=== PATIENT | female | born 1980 | race Caucasian/White ===

== ENCOUNTER 2017-01-22 20:58 | Emergency (ER) | payer BC ==
[~2017-01-22] VITALS: Ht 170.1 cm; Wt 63.5 kg
[~2017-01-22 20:58] MED LIST: ADDERALL20 MG PO; ALBUTEROL0.09 MG/A2 INH; AUGMENTIN 875 M1 TAB PO; AUGMENTIN 875875 MG PO; BACTRIM DS 8001 TA1 PO; BIRTH CONTROL1 EAC1 PO; CLARITIN10 MG PO; DICLOFENAC SOD75 MG PO; IBUPROFEN 30 M800 MG PO; KLONOPIN1 MG PO; MOTRIN800 MG PO; MUCINEX1200 MG PO; NKHM; PHENERGAN W/DM120 ML PO; PREDNISONE10 MG PO; PRISTIQ50 MG PO; PROAIR HFA0.09 MG/AC INH; PROVENTIL0.09 MG/AC IH; SPRINTEC 35 MCG1 TA1 PO; TRAMADOL HCL50 MG PO; TRIMOX500 MG PO; VICODIN 5/500 505 MG PO; VITAMIN B COMPL1 CAP PO; ZITHROMAX Z PA250 MG PO; ZOFRAN4 MG PO
[2017-01-22 21:19] VITALS: BP 126/79
[2017-01-22] MEDS ORDERED: PROZAC20 MG PO (21:20)
[2017-01-22] MEDS ORDERED: ABILIFY5 MG PO (21:21)
[2017-01-22] MEDS ORDERED: PROZAC40 M1 PO (21:21)
[2017-01-22] MEDS ORDERED: AMOXICILLIN500 M2 PO (21:42)
[2017-01-22] MEDS ORDERED: NAPROSYN500 MG PO (21:42)
== END 2017-01-22 21:52 | disposition home or self-care (01) ==
LOC: ED 20:58
DX: K08.89 Other specified disorders of teeth and supporting structures (principal); F17.200 Nicotine dependence, unspecified, uncomplicated; Z79.899 Other long term (current) drug therapy

== ENCOUNTER 2019-02-25 23:17 | Emergency (ER) | payer BC ==
[~2019-02-25] VITALS: Ht 170.1 cm; Wt 88.5 kg
[~2019-02-25 23:17] MED LIST changes: +ABILIFY5 MG PO; +AMOXICILLIN500 M2 PO; +NAPROSYN500 MG PO; +PROZAC20 MG PO; +PROZAC40 M1 PO
[2019-02-25 23:18] VITALS: BP 139/87
[2019-02-26 00:04] LABS: BILIRUBIN NEGATIVE (NEGATIVE); BLOOD 1+ (NEGATIVE); CLARITY SL CLOUDY (CLEAR); COLOR YELLOW (YELLOW); GLUCOSE NEGATIVE (NEGATIVE); KETONE NEGATIVE (NEGATIVE); LEUKO ESTERASE 2+ (NEGATIVE); NITRITE NEGATIVE (NEGATIVE); PH 6.5 (5.0-9.0); SPECIFIC GRAVITY <= 1.005 (1.005-1.030); UROBILINOGEN 0.2 E.U./dl (0.2-1.0)
[2019-02-26 00:25] LABS: BASO % 0.2 % (0.0-1.0); EOS # 0.3 10*3/uL (0.0-0.4); EOS % 2.1 % (1.0-4.0); HEMATOCRIT 45.3 % (37.0-47.0); HEMOGLOBIN 15.3 g/dl (12.0-16.0); LYMPH # 3.5 10*3/uL (1.3-4.4); LYMPH % 28.5 % (27.0-41.0); MEAN CELL VOLUME 91.9 fl (81.0-99.0); MEAN CORPUSCULAR HGB CONC 33.8 g/dl (33.0-37.0); MEAN PLATELET VOLUME 9.8 fl (9.6-12.3); MONO # 0.7 10*3/uL (0.1-1.0); MONO % 5.6 % (3.0-9.0); NEUT # 7.8 10*3/uL (2.3-7.9); NEUT % 63.2 % (47.0-73.0); PLATELET COUNT AUTOMATED 275 10*3/uL (130-400); RED BLOOD COUNT 4.93 10*6/uL (4.10-5.10); RED CELL DISTRI WIDTH 12.9 % (0-14.5); WHITE BLOOD COUNT 12.3 10*3/uL (4.8-10.8)
[2019-02-26 00:28] LABS: WBC 41-50 wbc/hpf (0-5)
[2019-02-26 00:39] LABS: ALBUMIN 3.4 gm/dl (3.1-4.5); ALKALINE PHOSPHATASE 111 U/L (45-117); BUN 4 mg/dl (7-24); CHLORIDE 105 mmol/L (98-107); CREATININE 0.72 mg/dL (0.55-1.02); POTASSIUM 3.4 mmol/L (3.5-5.1); SGOT/AST 12 IU/L (3-35); SGPT/ALT 18 U/L (12-78); SODIUM 139 mmol/L (136-145); TOTAL PROTEIN 6.7 gm/dL (6.4-8.2)
[2019-02-26] MEDS ORDERED: CYCLOBENZAPRINE10 MG PO (01:17)
[2019-02-26] MEDS ORDERED: IBU800 MG PO (01:17)
[2019-02-26] MEDS ORDERED: MACROBID100 M1 PO (01:17)
== END 2019-02-26 01:48 | disposition home or self-care (01) ==
LOC: ED 23:17
PROVIDERS: Nurse Practitioner Family
DX: S39.012A Strain of muscle, fascia and tendon of lower back, initial encounter (principal); N39.0 Urinary tract infection, site not specified; Z79.899 Other long term (current) drug therapy; W01.0XXA Fall on same level from slipping, tripping and stumbling without subsequent striking against object, initial encounter; Y93.89 Activity, other specified; Y92.89 Other specified places as the place of occurrence of the external cause; Y99.8 Other external cause status

== ENCOUNTER 2019-08-09 16:37 | Emergency (ER) | payer BC ==
[~2019-08-09] VITALS: Ht 170.1 cm; Wt 77.1 kg
[~2019-08-09 16:37] MED LIST changes: +CYCLOBENZAPRINE10 MG PO; +IBU800 MG PO; +MACROBID100 M1 PO
[2019-08-09 16:39] VITALS: BP 130/80
[2019-08-09] MEDS ORDERED: PENICILLIN VK500 MG PO (18:24)
[2019-08-09] MEDS ORDERED: IBU800 MG PO (18:24)
== END 2019-08-09 21:39 | disposition home or self-care (01) ==
LOC: ED 16:37
DX: S02.5XXA Fracture of tooth (traumatic), initial encounter for closed fracture (principal); K04.7 Periapical abscess without sinus; F17.200 Nicotine dependence, unspecified, uncomplicated; Z79.2 Long term (current) use of antibiotics; Z79.899 Other long term (current) drug therapy; X58.XXXA Exposure to other specified factors, initial encounter; Y93.89 Activity, other specified; Y92.89 Other specified places as the place of occurrence of the external cause; Y99.8 Other external cause status

== ENCOUNTER 2019-11-15 20:31 | Inpatient (IN) | payer BC ==
[~2019-11-15] VITALS: Ht 170.2 cm; Wt 78.0 kg
[~2019-11-15 20:31] MED LIST changes: +ADDERALL XR 3030 MG PO; -ADDERALL20 MG PO; +PENICILLIN VK500 MG PO
[2019-11-15 20:39] VITALS: BP 104/71
--- NOTE | 2019-11-15 21:45 | NUR ---
PATIENT STATES THAT PAIN MEDICATION HAS NOT HELPED. IGNACIA BERNAL NOTIFIED.
--- NOTE | 2019-11-15 22:22 | NUR ---
PT STATES THAT PAIN MEDICATION HAS BEEN EFFECTIVE.
[2019-11-15 22:44] LABS: BILIRUBIN 1+ (NEGATIVE); BLOOD NEGATIVE (NEGATIVE); CLARITY CLEAR (CLEAR); COLOR YELLOW (YELLOW); GLUCOSE NEGATIVE (NEGATIVE); KETONE TRACE (NEGATIVE); LEUKO ESTERASE 1+ (NEGATIVE); NITRITE NEGATIVE (NEGATIVE); UROBILINOGEN 0.2 E.U./dl (0.2-1.0)
[2019-11-15 22:53] LABS: BACTERIA 2+; EPITHELIAL CELLS 15-20; WBC 16-20 wbc/hpf (0-5)
[2019-11-15 22:57] LABS: BASO % 0.3 % (0.0-1.0); EOS % 0.3 % (1.0-4.0); HEMATOCRIT 37.8 % (37.0-47.0); HEMOGLOBIN 13.2 g/dl (12.0-16.0); LYMPH # 1.5 10*3/uL (1.3-4.4); LYMPH % 9.5 % (27.0-41.0); MEAN CELL VOLUME 90.2 fl (81.0-99.0); MEAN CORPUSCULAR HGB 31.5 pg (27.0-31.0); MEAN CORPUSCULAR HGB CONC 34.9 g/dl (33.0-37.0); MEAN PLATELET VOLUME 10.4 fl (9.6-12.3); MONO # 0.8 10*3/uL (0.1-1.0); MONO % 4.9 % (3.0-9.0); NEUT # 13.2 10*3/uL (2.3-7.9); NEUT % 84.4 % (47.0-73.0); PLATELET COUNT AUTOMATED 235 10*3/uL (130-400); RED BLOOD COUNT 4.19 10*6/uL (4.10-5.10); RED CELL DISTRI WIDTH 12.9 % (0-14.5); WHITE BLOOD COUNT 15.6 10*3/uL (4.8-10.8)
[2019-11-15 23:19] LABS: ALBUMIN 3.3 gm/dl (3.1-4.5); ALKALINE PHOSPHATASE 88 U/L (45-117); BUN 4 mg/dl (7-24); CHLORIDE 106 mmol/L (98-107); CREATININE 0.64 mg/dL (0.55-1.02); POTASSIUM 3.3 mmol/L (3.5-5.1); SGOT/AST 19 IU/L (3-35); SGPT/ALT 31 U/L (12-78); SODIUM 137 mmol/L (136-145); TOTAL PROTEIN 6.8 gm/dL (6.4-8.2)
[2019-11-16 01:55] VITALS: BP 112/68
[2019-11-16 02:15] LABS: ACT PARTIAL THROMBO TIME 27.6 SECONDS (20.0-32.1); INTERNATIONAL NORM RATIO 0.9 (2.0-3.5)
[2019-11-16 02:21] LABS: TROPONIN I < 0.015 ng/ml (<0.045)
[2019-11-16 02:30] VITALS: BP 96/56
--- NOTE | 2019-11-16 02:30 | NUR ---
A 39, admitted to , under the services of CHARLENE Pickett DO with a diagnosis of PULMONARY EMBOLISM. Chief complaint is LEFT SIDED PAIN. Patient arrived via ambulatory from ER. Monitor applied. Initial assessment completed. Vital signs taken and recorded. CHARLENE PICKETT DO notified of admission to the unit. Orders received. See assessment for past medical history, medications and allergies. Patient and/or family oriented to unit. visitation policy reviewed. Clothing/patient valuable form completed. BREANNA MCDUFFIE
--- NOTE | 2019-11-16 02:55 | NUR ---
PATIENT MEDICATED WITH NORCO FOR COMPLAINTS OF LEFT SIDED PAIN. WILL MONITOR FOR EFFECTIVENESS.
[2019-11-16] MEDS ORDERED: XANAX1 MG PO (03:09)
--- NOTE | 2019-11-16 03:10 | NUR ---
DR. MAYER NOTIFIED THAT PATIENT'S HOME MED REQ IS UP TO DATE ACCORDING TO WHAT SHE CLAIMS TO TAKE.
[2019-11-16 06:15] LABS: BUN 9 mg/dl (7-24); CHLORIDE 109 mmol/L (98-107); CHOLESTEROL 139 mg/dL (<200); CREATININE 0.56 mg/dL (0.55-1.02); PHOSPHOROUS 3.6 mg/dL (2.5-4.9); SGOT/AST 12 IU/L (3-35); SGPT/ALT 26 U/L (12-78); SODIUM 137 mmol/L (136-145); TRIGLYCERIDES 75 mg/dl (<150); VLDL CHOLESTEROL 15 mg/dL (6-40)
[2019-11-16 06:18] LABS: BASO % 0.3 % (0.0-1.0); EOS # 0.1 10*3/uL (0.0-0.4); EOS % 0.6 % (1.0-4.0); HEMATOCRIT 36.2 % (37.0-47.0); HEMOGLOBIN 12.2 g/dl (12.0-16.0); LYMPH % 24.4 % (27.0-41.0); MEAN CELL VOLUME 89.4 fl (81.0-99.0); MEAN CORPUSCULAR HGB 30.1 pg (27.0-31.0); MEAN CORPUSCULAR HGB CONC 33.7 g/dl (33.0-37.0); MEAN PLATELET VOLUME 10.5 fl (9.6-12.3); MONO % 7.9 % (3.0-9.0); NEUT # 8.3 10*3/uL (2.3-7.9); NEUT % 66.3 % (47.0-73.0); PLATELET COUNT AUTOMATED 237 10*3/uL (130-400); RED BLOOD COUNT 4.05 10*6/uL (4.10-5.10); RED CELL DISTRI WIDTH 12.8 % (0-14.5); WHITE BLOOD COUNT 12.5 10*3/uL (4.8-10.8)
[2019-11-16 06:22] LABS: ALKALINE PHOSPHATASE 77 U/L (45-117); FREE T4 1.34 ng/dl (0.76-1.46); HDL CHOLESTEROL 41 mg/dl (40-60); LDL CHOLESTEROL 83 mg/dL (9-159); THYROID STIM HORMONE (HS) 0.074 uIU/ml (0.358-4.75); TOTAL PROTEIN 6.2 gm/dL (6.4-8.2)
[2019-11-16 08:06] LABS: VITAMIN D, 25-HYDROXY 19.4 ng/mL (30-100)
--- NOTE | 2019-11-16 09:14 | NUR ---
NORCO 5/325 MG GIVEN FOR C/O RIB PAIN,05/25.
[2019-11-16 12:00] VITALS: BP 98/65
--- NOTE | 2019-11-16 13:10 | NUR ---
NOTIFIED DR MAYO OF POSITIVE URINE TEST.ORDER RECIEVED.
--- NOTE | 2019-11-16 14:10 | NUR ---
NOTIFIED DR MAYO OF BETA HCG OF 64,[phone].
--- NOTE | 2019-11-16 15:20 | NUR ---
NOTIFIED PT OF POSITIVE RESULTS PER DR MAYO'S REQUEST.EMOTIONAL SUPPORT PROVIDED.PT VISIBLY SHAKEN FROM NEWS.EDUCATION PROVIDED REGARDING ALL COURSES OF TREATMENT AVAILABLE TO PT. PER HER REQUEST.VOICES NO OTHER NEEDS AT THIS TIME. CALL LIGHT IN REACH.
[2019-11-16 16:00] VITALS: BP 100/62
--- NOTE | 2019-11-16 16:20 | NUR ---
PT RESTING IN BED VISITING WITH CHILDREN. VOICES NO NEEDS AT THIS TIME. EXHUSBAND VISITING AT BEDSIDE.CALL LIGHT IN REACH.
[2019-11-16 20:58] VITALS: BP 100/50
--- NOTE | 2019-11-16 21:11 | NUR ---
PT GIVEN NORCO AT THIS TIME FOR C/O PAIN TO LEFT SIDE. WILL MONITOR FOR EFFECTIVENESS. ALL OTHER NEEDS ARE MET. CALL LIGHT IN REACH.
--- NOTE | 2019-11-16 22:11 | NUR ---
BAY EFFECTIVE PER PT.
[2019-11-17] VITALS: BP 92/59
--- NOTE | 2019-11-17 06:00 | NUR ---
PT AWAKE, ALERT/ORIENTED AND PLEASANT WITH STAFF. SCHEDULED MEDICAITON GIVEN, RESPIRATIONS EASY AND UNLABORED ON ROOM AIR. FAMILY AT BEDSIDE PER APPROVAL OF [employer]. CLAL LIGHT IN REACH.
[2019-11-17 06:29] LABS: BASO % 0.4 % (0.0-1.0); EOS # 0.2 10*3/uL (0.0-0.4); HEMATOCRIT 35.8 % (37.0-47.0); HEMOGLOBIN 12.1 g/dl (12.0-16.0); LYMPH # 3.6 10*3/uL (1.3-4.4); LYMPH % 48.3 % (27.0-41.0); MEAN CELL VOLUME 91.8 fl (81.0-99.0); MEAN CORPUSCULAR HGB CONC 33.8 g/dl (33.0-37.0); MEAN PLATELET VOLUME 10.6 fl (9.6-12.3); MONO # 0.6 10*3/uL (0.1-1.0); MONO % 7.8 % (3.0-9.0); NEUT % 40.2 % (47.0-73.0); PLATELET COUNT AUTOMATED 227 10*3/uL (130-400); WHITE BLOOD COUNT 7.4 10*3/uL (4.8-10.8)
[2019-11-17 06:45] LABS: BUN 5 mg/dl (7-24); CHLORIDE 110 mmol/L (98-107); POTASSIUM 3.8 mmol/L (3.5-5.1); SODIUM 139 mmol/L (136-145)
[2019-11-17 08:00] VITALS: BP 95/61
--- NOTE | 2019-11-17 09:44 | NUR ---
Manager Child in to talk to patient. Patient states lives at home with children. There are no steps in the home. Physician: drew medrano Pharmacy: [facility] health services: none Patient's level of ADLs: INDEPENDENT Patient has working utilities: all working DME: none Follow-up physician's appointment after d/c: will be made by hospitalist nurse director upon dischage Does patient want to access PORTAL?: no Discharge plan discussed with patient, boyfriend present, she states she lives home with her boyfriend, she is independent in adls and ambualtion works, drives, she states she will return home when medically stable, discussed with her being able to pay for medications when discharged, she stated she wouldn't be able to pay for them if they were expensive, case management will contact [facility] pharmacy and check the cost of lovenox. RASHMI FIELDS
--- NOTE | 2019-11-17 10:17 | NUR ---
case management contacted [facility] pharmacy, pharmacist checked cost of Lovenox, for a 10 day supply the cost is $125.50
[2019-11-17 12:00] VITALS: BP 90/52
--- NOTE | 2019-11-17 14:10 | NUR ---
ARRIVED TO ROOM 528 FROM 4E. ALERT AND ORIENTED. RESPIRATIONS EASY. LUNGS DIMINISHED. PULSE OX 100% RA. TRACE BLE EDEMA. ORIENTED TO ROOM, STAFF, CALL SYSTEM. CALL LIGHT WITHIN REACH. NO VOICED COMPLAINTS
--- NOTE | 2019-11-17 14:56 | NUR ---
REQUESTED AND RECEIVED ZOFRAN IV PER PRN ORDER FOR COMPLAINTS OF NAUSEA. CALL LIGHT WITHIN REACH. WILL MONITOR FOR EFFECTIVENESS
[2019-11-17 16:00] VITALS: BP 95/56
--- NOTE | 2019-11-17 16:30 | NUR ---
STATES EARLIER MEDS EFFECTIVE. RESTING IN BED. NO FURTHER VOICED COMPLAINTS
--- NOTE | 2019-11-17 19:28 | NUR ---
REQUESTED AND RECEIVED NORCO PER PRN ORDER FOR COMPLAINTS OF LEFT SIDED PAIN RATING A 9. CALL LIGHT WITHIN REACH. WILL MONITOR
--- NOTE | 2019-11-17 19:46 | NUR ---
PATIENT RESTING IN BED ON RIGHT SIDE TALKING ON PHONE. C/O PAIN IN LEFT SIDE.LUNGS DIMINISHED. BED IN LOWEST POSITION, CALL LIGHT IN REACH
[2019-11-17 20:00] VITALS: BP 92/53
[2019-11-18] VITALS: BP 93/56
--- NOTE | 2019-11-18 01:20 | NUR ---
MEDICATED WITH PRN NORCO FOR C/O PAIN IN LEFT SIDE RATED 8/10 ON A 0/10 PAIN SCALE. WILL MONITOR
--- NOTE | 2019-11-18 02:59 | NUR ---
24 HR chart check completed.
[2019-11-18 08:00] VITALS: BP 96/56
--- NOTE | 2019-11-18 10:47 | NUR ---
MACHINE SIGN WRITER IN TO SEE PT, TALKED WITH HER ABOUT COST OF LOVONEX INJECTIONS AT HOME. COST AT [facility] IS 125.50 FOR 10 DAYS. COST AT OUR PHARMACY IS 65.25 FOR [address] MAYO PT WILL NEED IT FOR 3 MONTHS. PT STATES SHE CAN NOT AFFORD EITHER OF THESE.
--- NOTE | 2019-11-18 11:00 | NUR ---
TALKED WITH ROBYN IN PHARMACY AND HE STATES PT CAN GET LOVONEX THROUGH THE [facility]. STATES TO HAVE MD WRITE SCRIPT FOR 3 MONTHS BUT THEY WILL DISPENSE IT EVERY TWO WEEKS.
[2019-11-18 11:48] VITALS: BP 100/58
--- NOTE | 2019-11-18 11:56 | NUR ---
PT C/O LEFT SIDE/RIB PAIN, WORSE WITH DEEP BREATHS. RATES PAIN 9 ON PAIN SCALE 0-10. MEDICATED WITH NORCO PO PER PRN ORDER, SEE EMAR. CALL LIGHT IN REACH.
[2019-11-18] MEDS ORDERED: Lovenox80 MG/0.8 SC (12:29)
--- NOTE | 2019-11-18 13:00 | NUR ---
RESTING IN BED. STATES PAIN MEDICATION HELPS LONG SHE DON'T TAKE DEEP BREATHES PER PT. CALL LIGHT IN REACH.
[2019-11-18 16:00] VITALS: BP 109/74
--- NOTE | 2019-11-18 16:12 | NUR ---
PT TOLERATED ROUTINE XANAX FOR ANXIETY SEE EMAR. CALL LIGHT IN REACH.
[2019-11-18] MEDS ORDERED: HYDROCODONE-AC1 EAC2 PO (18:01)
--- NOTE | 2019-11-18 18:50 | NUR ---
PT C/O LEFT RIB/SIDE PAIN, RATES PAIN 8 ON PAIN SCALE 0-10. MEDICATED WITH NORCO PO PER PRN ORDER, SEE EMAR. CALL LIGHT IN REACH.
--- NOTE | 2019-11-18 18:58 | NUR ---
Discharge instructions reviewed with patient/family. Patient receptive and verbalizes understanding. Follow-up care arranged. Written instructions given to patient/family. HEPLOCK REMOVED. PT INSTRUCTED ON LOVENOX INJECTIONS. MADE AWARE SHE CAN PICK PRESCRIPTION UP IN THE AM FROM OUR PHARMACY. ALSO PER PHARMACY GAVE HER AN INJECTION FOR THIS EVENING. SHAILESH DONOHUE R
--- NOTE | 2019-11-18 19:25 | NUR ---
PT ESCORTED OFF THE FLOOR VIA WHEELCHAIR WITH FAMILY AT HER SIDE.
== END 2019-11-18 19:25 | disposition home or self-care (01) | DRG 832 ==
LOC: ED 20:31 → EDHOLD 11-16 01:50 → 5E 11-16 01:50 → 4E 11-16 02:26 → 5E 11-17 14:03
PROVIDERS: Internal Medicine; Physician Assistant; ADMIT Family Medicine
DX: O88.211 Thromboembolism in pregnancy, first trimester (principal); R65.10 Systemic inflammatory response syndrome (SIRS) of non-infectious origin without acute organ dysfunction; E87.6 Hypokalemia; O25.11 Malnutrition in pregnancy, first trimester; O99.331 Smoking (tobacco) complicating pregnancy, first trimester; F17.210 Nicotine dependence, cigarettes, uncomplicated; O99.341 Other mental disorders complicating pregnancy, first trimester; O99.62 Diseases of the digestive system complicating childbirth; F32.9 Major depressive disorder, single episode, unspecified; F41.9 Anxiety disorder, unspecified; O99.281 Endocrine, nutritional and metabolic diseases complicating pregnancy, first trimester; O26.51 Maternal hypotension syndrome, first trimester; E87.8 Other disorders of electrolyte and fluid balance, not elsewhere classified; F90.9 Attention-deficit hyperactivity disorder, unspecified type; K21.9 Gastro-esophageal reflux disease without esophagitis; E53.8 Deficiency of other specified B group vitamins; E55.9 Vitamin D deficiency, unspecified; Z71.6 Tobacco abuse counseling; Z3A.00 Weeks of gestation of pregnancy not specified

== ENCOUNTER 2019-11-19 13:46 | Emergency (ER) | payer BC ==
[~2019-11-19] VITALS: Ht 170.1 cm; Wt 79.4 kg
[~2019-11-19 13:46] MED LIST changes: +HYDROCODONE-AC1 EAC2 PO; +Lovenox80 MG/0.8 SC; +XANAX1 MG PO
[2019-11-19 16:43] VITALS: BP 98/60
== END 2019-11-19 17:25 | disposition home or self-care (01) ==
LOC: ED 13:46
DX: I26.99 Other pulmonary embolism without acute cor pulmonale (principal); K21.9 Gastro-esophageal reflux disease without esophagitis; R42 Dizziness and giddiness; J45.909 Unspecified asthma, uncomplicated; F17.210 Nicotine dependence, cigarettes, uncomplicated; Z91.14 Patient's other noncompliance with medication regimen; Z79.899 Other long term (current) drug therapy; Z86.711 Personal history of pulmonary embolism

== ENCOUNTER → 2019-12-10 | Outpatient (CLI) | payer SELFPAY | END | disposition home or self-care (01) | LOC: LAB 15:25 | DX: O09.90 Supervision of high risk pregnancy, unspecified, unspecified trimester (principal); Z3A.00 Weeks of gestation of pregnancy not specified ==

== ENCOUNTER 2020-01-03 00:44 | Emergency (ER) | payer OTHER ==
[2020-01-03 01:10] VITALS: BP 112/62
[2020-01-03] MEDS ORDERED: MIXED AMPHETAMI30 MG PO (01:11)
[2020-01-03] MEDS ORDERED: ELIQUIS5 M1 PO (01:12)
== END 2020-01-03 02:40 | disposition home or self-care (01) ==
LOC: ED 00:44
DX: S00.03XA Contusion of scalp, initial encounter (principal); K21.9 Gastro-esophageal reflux disease without esophagitis; F17.210 Nicotine dependence, cigarettes, uncomplicated; Z79.899 Other long term (current) drug therapy; Y08.89XA Assault by other specified means, initial encounter; Y93.89 Activity, other specified; Y92.89 Other specified places as the place of occurrence of the external cause; Y99.8 Other external cause status

== ENCOUNTER → 2021-02-10 | Outpatient (CLI) | payer OTHER ==
[~2021-02-10] MED LIST changes: +ELIQUIS5 M1 PO; +MIXED AMPHETAMI30 MG PO
[2021-02-10 13:24] LABS: ACT PARTIAL THROMBO TIME 23.3 SECONDS (20.0-32.1); INTERNATIONAL NORM RATIO 0.9 (2.0-3.5)
[2021-02-11 17:06] LABS: ANTICARDIOLIPIN AB, IGG, QN <9 GPL U/mL (0-14); ANTICARDIOLIPIN AB, IGM, QN 11 MPL U/mL (0-12)
[2021-02-12 04:06] LABS: ANTI-THROMBIN III ACTIVITY 126 % (75-135); PROTEIN C, ACTIVITY 151 % (73-180); PROTEIN S - FUNCTIONAL 42 % (63-140)
[2021-02-12 05:07] LABS: FACTOR VIII ACTIVITY 200 % (56-140)
[2021-02-12 14:08] LABS: LUPUS REFLEX INTERPRETATION Comment: (.); PTT-LA 32.1 sec (0.0-51.9)
[2021-02-16 13:07] LABS: AFP VALUE 64.1 ng/mL (.); GEST AGE ON COLLECT 20.7 weeks (.); GESTATIONAL AGE BASED ON As provided (.); INSULIN DEPENDANT DIABETES No (.); MATERNAL AGE AT EDD 39.9 yr (.); MULTIPLE GESTATION No (.); OSBR RISK 8106 (.); RACE Caucasian (.); TEST RESULTS *Screen Negative* (.); WEIGHT 181 lbs (.)
[2021-02-16 18:06] LABS: PLASMINOGEN ACT INHIBITOR-1 5 IU/mL (0-27)
== END | disposition home or self-care (01) ==
LOC: LAB 12:26
PROVIDERS: Obstetrics & Gynecology; ATTEND Obstetrics & Gynecology Maternal & Fetal Medicine
DX: O23.12 Infections of bladder in pregnancy, second trimester (principal); Z3A.15 15 weeks gestation of pregnancy; Z86.711 Personal history of pulmonary embolism

== ENCOUNTER 2021-05-30 18:47 | Emergency (ER) | payer OTHER ==
[~2021-05-30] VITALS: Ht 167.6 cm; Wt 83.5 kg
[2021-05-30 18:52] VITALS: BP 111/77
== END 2021-05-30 20:00 | disposition left against medical advice (07) ==
LOC: ED 18:47
DX: O62.9 Abnormality of forces of labor, unspecified (principal); Z3A.36 36 weeks gestation of pregnancy; Z53.21 Procedure and treatment not carried out due to patient leaving prior to being seen by health care provider